=== PATIENT | female | born 1985 | race Caucasian/White ===

== ENCOUNTER 2020-03-23 20:10 | Emergency (ER) | payer OTHER, MEDICAID, SELFPAY ==
[2020-03-23] VITALS (9 sets, daily range): BP systolic 123–146; BP diastolic 70–94; PULSE 72–88; RESP 19–39; TEMP 37.2; O2SAT 99–100; BMI 35.5
--- NOTE | 2020-03-23 20:42 | ED_ITS ---
HPI - SOB/Dyspnea General Chief Complaint: Shortness of Breath/Dyspnea Stated Complaint: SOB DIZZY WEAKNESS Time Seen by Provider: 03/23/20 20:24 Source: patient Mode of arrival: Ambulatory Limitations: no limitations History of Present Illness HPI Narrative: 34-year-old female nonsmoker with noncontributory history presents with a chief complaint of worsening shortness of breath contributing to some dizziness anxiety over the course of the night. She was recently seen and evaluated at outside facility chest x-ray demonstrated infiltrates which resulted in treatment with antibiotics that she has finished. She has had no fever chills. She denies any chest pain. She has had no nausea, vomiting or diarrhea. MD Complaint: shortness of breath Onset (ago): hour(s) Severity: moderate Consistency/Duration: constant Relieving factors: nothing Known history of: recurrent pneumonia Treatment prior to arrival: other Related Data Home oxygen amount: none Allergies Allergy/AdvReac Type Severity Reaction Status Date / Time Sulfa (Sulfonamide Allergy Verified 03/23/20 20:24 Antibiotics) Review of Systems Constitutional Constitutional: Denies chills, Denies fatigue, Denies fever(s), Denies frequent falls, Denies lethargy and Denies weakness Eyes Eyes: Denies change in vision, Denies eye discharge, Denies irritation and Denies loss of vision ENT Ears, Nose, Mouth, and Throat: Denies change in voice, Denies dizziness, Denies neck pain, Denies sore throat and Denies throat swelling Cardiovascular Cardiovascular: Denies chest pain, Denies irregular heart rhythm, Denies lightheadedness, Denies palpitations, Reports dyspnea, Denies dyspnea on exertion and Denies orthopnea Respiratory Respiratory: Reports cough, Reports dyspnea, Denies dyspnea on exertion and Denies wheezing Gastrointestinal Gastrointestinal: Denies abdominal pain, Denies change in bowel habits, Denies diarrhea, Denies nausea and Denies vomiting Musculoskeletal Musculoskeletal: Denies neck pain and Denies numbness Integumentary/Breasts Skin/Breast: Denies pruritus, Denies erythema, Denies rash and Denies wounds Neurologic Neurologic: Denies behavioral changes, Denies confusion, Denies dizziness, Denies frequent falls, Denies loss of vision, Denies numbness and Denies weakness Psychiatric Psychiatric: Denies anxiety, Denies behavioral changes, Denies confusion, Denies depression, Denies homicidal ideation and Denies suicidal ideation Endocrine Endocrine: Denies fatigue, Denies flushing and Denies palpitations Hematologic/Lymphatic Hematologic/Lymphatic: Denies easy bruising Allergic/Immunologic Allergic/Immunologic: Denies urticaria, Denies throat swelling and Denies wheezing Patient History Social History Smoking Status: Never smoker Smoking Status: Never smoker alcohol intake frequency: holidays/special occasions only Substance Use Type: does not use Exam Narrative Exam Narrative: GENERAL: [34] year old patient appears stated age. Well- nourished, well-developed patient, in mild distress. Anxious, increased work of breathing HEAD: Atraumatic. Normocephalic. EYES: Pupils equal round and reactive. Extraocular motions intact. No scleral icterus. No injection or drainage. ENT: Nose without bleeding, purulent drainage. Throat without erythema, tonsillar hypertrophy or exudate. Airway patent. NECK: Trachea midline. Non tender CARDIOVASCULAR: Regular rate and rhythm without murmurs, gallops, or rubs. RESPIRATORY: Clear to auscultation. Breath sounds equal bilaterally. No wheezes, rales, or rhonchi. GASTROINTESTINAL: Abdomen soft, non-tender, nondistended. EXTREMITIES: No edema or joint tenderness. BACK: Nontender without deformity or crepitance. No flank tenderness. NEURO: AOx3. SKIN: No rash or erythema of visible areas NIH Stroke Scale 1a. LOC: Patient is alert and keenly responsive (0) 1b. LOC Questions: Patient answers both LOC questions accurately (0) 1c. LOC Commands: Patient performs both tasks correctly (0) 2. Best Gaze: Normal (0) 3. Visual: No visual loss (0) 4. Facial palsy: Normal symmetrical movements (0) 5. Motor arm: No drift (0) 6. Motor leg: No drift (0) 7. Limb ataxia: Absent (0) 8. Sensory: Normal (0) 9. Best language: No aphasia; normal (0) 10. Dysarthria: Normal (0) 11. Extinction and inattention: No abnormality (0) NIHSS: 0 Initial Vital Signs Initial Vital Signs: Vital Signs Pulse Rate 88 03/23/20 20:22 Respiratory Rate 27 H 03/23/20 20:22 Pulse Oximetry 100 03/23/20 20:22 Course Course Course Narrative: Patient had been on phentermine for about 5 days prior to the onset of her symptoms. Initially it was thought that her shortness of breath was certainly due to the abnormal findings on the chest x-ray at outside facility, but there is the possibility that her symptoms are related to phentermine use. Medication reaction, including tachycardia, anxiety, and even direct myocardial toxicity considered. Myocardial toxicity thought unlikely given lack of abnormal lab findings Orders Ordered: ED Orders 03/24/20 00:46 CT angio chest PE protocol Stat Arterial Blood Gas Stat 03/24/20 00:55 Thyroid Stimulating Hormone Stat 03/24/20 02:06 Venous Blood Gas Stat 03/24/20 02:55 Salicylate Stat Discontinued Medications Sodium Chloride (Normal Saline 0.9%) 1,000 mls @ 1,000 mls/hr IV BOLUS ONE Stop: 03/23/20 21:41 Last Infusion: 03/23/20 23:21 Dose: 0 mls/hr Documented by: Admin: 03/23/20 21:11 Dose: 1,000 mls/hr Documented by: BETTE Vital Signs Vital signs: Vital Signs - 8 hr 03/23/20 23:00 03/23/20 23:30 03/24/20 00:00 Pulse Rate 85 79 73 Respiratory Rate 23 39 H 21 Blood Pressure 125/83 Pulse Oximetry 100 100 100 03/24/20 00:30 03/24/20 01:08 03/24/20 01:30 Pulse Rate 88 107 H 76 Respiratory Rate 30 H 31 H 28 H Blood Pressure Pulse Oximetry 99 90 L 100 03/24/20 02:00 03/24/20 02:06 03/24/20 02:30 Pulse Rate 90 85 70 Respiratory Rate 38 H 25 H 28 H Blood Pressure 121/79 124/79 Pulse Oximetry 100 100 98 03/24/20 03:00 03/24/20 03:30 Pulse Rate 76 80 Respiratory Rate 21 32 H Blood Pressure Pulse Oximetry 97 97 MDM - SOB/Dyspnea Lab Data Result diagrams: 03/23/20 20:55 03/23/20 20:55 Labs: Lab Results 03/23/20 03/23/20 03/23/20 Range/Units 20:20 20:55 20:55 WBC 11.2 H (4.5-11.0) X10^3/uL RBC 5.05 (4.0-5.2) X10^6/uL Hgb 13.6 (12.0-16.0) g/dL Hct 41.8 (36-46) % MCV 82.8 (80-100) fL MCH 26.9 (26-34) PG MCHC 32.5 (30-36) % RDW 16.5 H (11.6-14.8) % Plt Count 360 (150-400) X10^3/uL Neut % (Auto) 59.7 (50-75) % Lymph % (Auto) 31.9 (25-40) % [place] % (Auto) 7.0 (3-14) % Eos % (Auto) 0.7 L (2-4) % Baso % (Auto) 0.7 (0-2) % Neut # (Auto) 6700 (9386-5023) /uL Lymph # (Auto) 3600 (7957-8954) /uL [place] # (Auto) 800 (0-900) /uL Eos # (Auto) 100 (0-450) /uL Baso # (Auto) 100 (0-100) /uL D-Dimer < 200 (<230) ng/mL VBG pH (7.33-7.43) VBG pCO2 (45-50) mmHg VBG pO2 (35-45) mmHg VBG HCO3 (23-28) mmol/L VBG Total CO2 (24-29) mmol/L VBG O2 Saturation (70-75) % VBG Base Excess (0-4) mmol/L Sodium (137-145) mmol/L Potassium (3.4-5.1) mmol/L Chloride (98-107) mmol/L Carbon Dioxide (22-32) mmol/L BUN (7-17) mg/dL Creatinine (0.52-1.04) mg/dL Estimated GFR (>60) mL/min BUN/Creatinine Ratio (6-22) Glucose (70-100) mg/dL Lactate (0.7-2.1) mmol/L Calcium (8.4-10.2) mg/dL Magnesium (1.6-2.3) mg/dL Total Creatine Kinase (30-135) U/L CK-MB (CK-2) (<2.37) ng/mL CK-MB (CK-2) Rel Index (1.5-5.0) % Troponin I (0.01-0.034) ng/mL NT-Pro-B Natriuret Pep (<125) pg/mL Procalcitonin (<0.5) ng/mL TSH (0.47-4.68) uIU/mL Salicylates (<20) mg/dL COVID-19 PCR Negative (Negative) 03/23/20 03/23/20 03/23/20 Range/Units 20:55 20:55 20:55 WBC (4.5-11.0) X10^3/uL RBC (4.0-5.2) X10^6/uL Hgb (12.0-16.0) g/dL Hct (36-46) % MCV (80-100) fL MCH (26-34) PG MCHC (30-36) % RDW (11.6-14.8) % Plt Count (150-400) X10^3/uL Neut % (Auto) (50-75) % Lymph % (Auto) (25-40) % [place] % (Auto) (3-14) % Eos % (Auto) (2-4) % Baso % (Auto) (0-2) % Neut # (Auto) (2106-5610) /uL Lymph # (Auto) (7024-0788) /uL [place] # (Auto) (0-900) /uL Eos # (Auto) (0-450) /uL Baso # (Auto) (0-100) /uL D-Dimer (<230) ng/mL VBG pH (7.33-7.43) VBG pCO2 (45-50) mmHg VBG pO2 (35-45) mmHg VBG HCO3 (23-28) mmol/L VBG Total CO2 (24-29) mmol/L VBG O2 Saturation (70-75) % VBG Base Excess (0-4) mmol/L Sodium 137 (137-145) mmol/L Potassium 3.4 (3.4-5.1) mmol/L Chloride 106 (98-107) mmol/L Carbon Dioxide 20 L (22-32) mmol/L BUN 13 (7-17) mg/dL Creatinine 0.77 (0.52-1.04) mg/dL Estimated GFR > 60.0 (>60) mL/min BUN/Creatinine Ratio 16.9 (6-22) Glucose 95 (70-100) mg/dL Lactate 2.4 H (0.7-2.1) mmol/L Calcium 10.0 (8.4-10.2) mg/dL Magnesium 1.9 (1.6-2.3) mg/dL Total Creatine Kinase 192 H (30-135) U/L CK-MB (CK-2) 0.44 (<2.37) ng/mL CK-MB (CK-2) Rel Index 0.2 L (1.5-5.0) % Troponin I < 0.012 (0.01-0.034) ng/mL NT-Pro-B Natriuret Pep 28 (<125) pg/mL Procalcitonin < 0.05 (<0.5) ng/mL TSH (0.47-4.68) uIU/mL Salicylates (<20) mg/dL COVID-19 PCR (Negative) 03/23/20 03/23/20 03/23/20 Range/Units 20:55 20:55 23:20 WBC (4.5-11.0) X10^3/uL RBC (4.0-5.2) X10^6/uL Hgb (12.0-16.0) g/dL Hct (36-46) % MCV (80-100) fL MCH (26-34) PG MCHC (30-36) % RDW (11.6-14.8) % Plt Count (150-400) X10^3/uL Neut % (Auto) (50-75) % Lymph % (Auto) (25-40) % [place] % (Auto) (3-14) % Eos % (Auto) (2-4) % Baso % (Auto) (0-2) % Neut # (Auto) (7157-3813) /uL Lymph # (Auto) (4247-0430) /uL [place] # (Auto) (0-900) /uL Eos # (Auto) (0-450) /uL Baso # (Auto) (0-100) /uL D-Dimer (<230) ng/mL VBG pH (7.33-7.43) VBG pCO2 (45-50) mmHg VBG pO2 (35-45) mmHg VBG HCO3 (23-28) mmol/L VBG Total CO2 (24-29) mmol/L VBG O2 Saturation (70-75) % VBG Base Excess (0-4) mmol/L Sodium (137-145) mmol/L Potassium (3.4-5.1) mmol/L Chloride (98-107) mmol/L Carbon Dioxide (22-32) mmol/L BUN (7-17) mg/dL Creatinine (0.52-1.04) mg/dL Estimated GFR (>60) mL/min BUN/Creatinine Ratio (6-22) Glucose (70-100) mg/dL Lactate 1.1 (0.7-2.1) mmol/L Calcium (8.4-10.2) mg/dL Magnesium (1.6-2.3) mg/dL Total Creatine Kinase (30-135) U/L CK-MB (CK-2) (<2.37) ng/mL CK-MB (CK-2) Rel Index (1.5-5.0) % Troponin I (0.01-0.034) ng/mL NT-Pro-B Natriuret Pep (<125) pg/mL Procalcitonin (<0.5) ng/mL TSH 4.89 H (0.47-4.68) uIU/mL Salicylates < 1.0 (<20) mg/dL COVID-19 PCR (Negative) 03/24/20 Range/Units 02:06 WBC (4.5-11.0) X10^3/uL RBC (4.0-5.2) X10^6/uL Hgb (12.0-16.0) g/dL Hct (36-46) % MCV (80-100) fL MCH (26-34) PG MCHC (30-36) % RDW (11.6-14.8) % Plt Count (150-400) X10^3/uL Neut % (Auto) (50-75) % Lymph % (Auto) (25-40) % [place] % (Auto) (3-14) % Eos % (Auto) (2-4) % Baso % (Auto) (0-2) % Neut # (Auto) (4864-1855) /uL Lymph # (Auto) (6117-8495) /uL [place] # (Auto) (0-900) /uL Eos # (Auto) (0-450) /uL Baso # (Auto) (0-100) /uL D-Dimer (<230) ng/mL VBG pH 7.53 H (7.33-7.43) VBG pCO2 20.5 L (45-50) mmHg VBG pO2 25 L (35-45) mmHg VBG HCO3 17 L (23-28) mmol/L VBG Total CO2 18 L (24-29) mmol/L VBG O2 Saturation 58 L (70-75) % VBG Base Excess -5.0 L (0-4) mmol/L Sodium (137-145) mmol/L Potassium (3.4-5.1) mmol/L Chloride (98-107) mmol/L Carbon Dioxide (22-32) mmol/L BUN (7-17) mg/dL Creatinine (0.52-1.04) mg/dL Estimated GFR (>60) mL/min BUN/Creatinine Ratio (6-22) Glucose (70-100) mg/dL Lactate (0.7-2.1) mmol/L Calcium (8.4-10.2) mg/dL Magnesium (1.6-2.3) mg/dL Total Creatine Kinase (30-135) U/L CK-MB (CK-2) (<2.37) ng/mL CK-MB (CK-2) Rel Index (1.5-5.0) % Troponin I (0.01-0.034) ng/mL NT-Pro-B Natriuret Pep (<125) pg/mL Procalcitonin (<0.5) ng/mL TSH (0.47-4.68) uIU/mL Salicylates (<20) mg/dL COVID-19 PCR (Negative) Point of Care Testing Test Results Negative Urine Dip Bedside Urine Glucose Negative Bedside Urine Bilirubin - Negative Bedside Urine Ketone +/- 5 Urine Specific [place] 1.015 Bedside Urine Occult Blood - Negative Bedside Urine pH 6.0 Bedside Urine Protein - Negative Bedside Urine Urobilinogen - Negative Bedside Urine Nitrite - Negative Bedside Urine Leukocytes - Negative Esterase MDM Narrative Medical decision making narrative: Patient complains of ongoing shortness of breath with recent diagnosis of pneumonia. Extensive evaluation performed including imaging, labs and detailed physical exams. Breath sounds are unremarkable, chest x-ray and CT would suggest no infiltrate, PE or pericardial effusion. Other diagnoses such as CA, CHF, electrolyte abnormality and anemia considered but thought less likely given lack of abnormal findings on the labs. Neurologic conditions considered, however detailed neurologic exam including cranial nerves demonstrate no findings. Guillain-[place] considered but thought less likely given lack of lower extremity weakness, numbness, change in reflexes. Various metabolic acidosis considered but thought less likely given findings on VBG. Again, COVID pneumonia considered but thought less likely given lack of findings on swab. Extensive return precautions given and questions answered to the apparent satisfaction of patient. Discharge Plan Departure Patient Disposition: Home Clinical Impression: Dyspnea Qualifiers: Dyspnea type: dyspnea on exertion Qualified Code(s): R06.00 - Dyspnea, unspecified Instructions: DI for Shortness of Breath Activity Restrictions/Additional Instructions: *You have been diagnosed with [shortness of breath, possibly and affect of your phentermine. Your lab work, physical exam and imaging are all very reassuring.] *What to do: * do not begin taking phentermine again *Follow up with your primary care provider in 2-3 days, call for an appointment. Let them know you were seen in the Emergency Department and that we ask that you be seen in follow up *Return to ER if you should have any new, worsening or concerning symptoms
--- NOTE | 2020-03-23 20:43 | DI.RAD.S_ITS ---
PROCEDURE: XR CHEST 2V INDICATIONS: SOB, recent PNA TECHNIQUE: 2 views of the chest were acquired. COMPARISON: [facility], CT, CT ANGIO CHEST PE PROTOCOL, 03/24/2020, 0:53. [facility], CR, XR CHEST 2VW, 07/17/2015, 14:18. FINDINGS: Surgical changes and devices: None. Lungs and pleura: Lungs are clear. No pleural effusions or pneumothorax. Mediastinum: Mediastinal contours are normal. Heart size is normal. Bones and chest wall: No suspicious bony abnormalities. Soft tissues appear unremarkable. IMPRESSION: Normal chest plain films. Dictated by: Axel Ricardo M.D. on 03/24/2020 at 7:21 Approved by: Axel Riacrdo M.D. on 03/24/2020 at 7:22
[2020-03-23] MEDS: SODIUM CHLORIDE 0.9% 1,000 ML 1000 ML IV (21:11)
[2020-03-23 21:14] LABS: Add Manual Diff / Slide Review NO; Basophils Absolute Auto 100 /uL (0-100); Basophils Percent Auto 0.7 % (0-2); Eosinophils Absolute Auto 100 /uL (0-450); Eosinophils Percent Auto 0.7 % (2-4); Hematocrit 41.8 % (36-46); Hemoglobin 13.6 g/dL (12.0-16.0); Lymphocytes Absolute Auto 3600 /uL (1100-4500); Lymphocytes Percent Auto 31.9 % (25-40); Mean Corpuscular HGB Conc 32.5 % (30-36); Mean Corpuscular Hemoglobin 26.9 PG (26-34); Mean Corpuscular Volume 82.8 fL (80-100); Monocytes Absolute Auto 800 /uL (0-900); Neutrophils Absolute Auto 6700 /uL (1500-7000); Neutrophils Percent Auto 59.7 % (50-75); Platelet Count 360 X10^3/uL (150-400); Red Blood Cell Count 5.05 X10^6/uL (4.0-5.2); Red Cell Distribution Width 16.5 % (11.6-14.8); White Blood Cell Count 11.2 X10^3/uL (4.5-11.0)
[2020-03-23 21:29] LABS: BUN Creatinine Ratio 16.9 (6-22); Blood Urea Nitrogen 13 mg/dL (7-17); Carbon Dioxide 20 mmol/L (22-32); Chloride 106 mmol/L (98-107); Creatine Kinase 192 U/L (30-135); Estimated Glomerular Filt Rate > 60.0 mL/min (>60); Glucose 95 mg/dL (70-100); HEMOLYSIS < 15 (0-50); Lactate (Lactic Acid) 2.4 mmol/L (0.7-2.1); Magnesium 1.9 mg/dL (1.6-2.3); Potassium 3.4 mmol/L (3.4-5.1); Sodium 137 mmol/L (137-145)
[2020-03-23 21:40] LABS: NT-proBNP (BNP-Adult 18+) 28 pg/mL (<125); Troponin I < 0.012 ng/mL (0.01-0.034)
[2020-03-23 21:43] LABS: CKMB % Relative Index 0.2 % (1.5-5.0); Creatine Kinase MB 0.44 ng/mL (<2.37)
[2020-03-23 21:46] LABS: Procalcitonin < 0.05 ng/mL (<0.5)
[2020-03-23 21:58] LABS: COVID19 -Nasal RAPID Negative (Negative)
[2020-03-23 22:07] LABS: D Dimer < 200 ng/mL (<230)
[2020-03-23 23:10] LABS: Reflexed Lactate in 2 Hours Y
[2020-03-23 23:37] LABS: Lactate 2HR (Lactic Acid Rflx) 1.1 mmol/L (0.7-2.1)
[2020-03-24] VITALS (9 sets, daily range): BP systolic 121–124; BP diastolic 79; PULSE 70–107; RESP 21–38; O2SAT 90–100
--- NOTE | 2020-03-24 00:46 | DI.CT.S_ITS ---
PROCEDURE: CT ANGIO CHEST PE PROTOCOL INDICATIONS: severe shortness of breath with minimal exertion TECHNIQUE: After the administration of intravenous contrast, 2 mm thick sections acquired from the pulmonary apices to the posterior costophrenic angles. 3-dimensional maximum intensity projection (MIP) coronal and sagittal reformats were then acquired through the thorax. For radiation dose reduction, the following was used: automated exposure control, adjustment of mA and/or kV according to patient size. COMPARISON: None. FINDINGS: Image quality: Excellent. Pulmonary arteries: Pulmonary arteries are normal in size, and demonstrate no intraluminal filling defects to suggest central pulmonary embolism. Lungs and pleura: Lungs are clear. No pleural effusions or pneumothorax. Central and peripheral airways are patent. Mediastinum: Heart size is normal, without pericardial effusion. No mediastinal or hilar adenopathy. Thoracic aorta is normal in caliber and enhancement. Esophagus is normal in caliber, without hiatal hernia. Bones and chest wall: No suspicious bony lesions. Ribs and thoracic spine appear intact throughout. No axillary or supraclavicular adenopathy. Abdomen: Borderline enlarged spleen. Punctate hyperdensity near the gallbladder neck may represent partially visualized calculus. No acute finding in the included upper abdomen otherwise. IMPRESSION: No pulmonary embolism or other acute finding in the chest. Borderline splenomegaly. Possible cholelithiasis. No significant change from preliminary report . Dictated by: Mor Edmondson M.D. on 03/24/2020 at 8:01 Approved by: Mor Edmondson M.D. on 03/24/2020 at 8:03
[2020-03-24 02:19] LABS: PCO2 VBG 20.5 mmHg (45-50); pH VBG 7.53 (7.33-7.43)
[2020-03-24 02:20] LABS: HCO3 VBG 17 mmol/L (23-28); Oxygen Saturation VBG 58 % (70-75); PO2 VBG 25 mmHg (35-45); Total CO2 VBG 18 mmol/L (24-29)
[2020-03-24 03:09] LABS: Salicylate < 1.0 mg/dL (<20)
[2020-03-24 03:46] LABS: Thyroid Stimulating Hormone 4.89 uIU/mL (0.47-4.68)
== END 2020-03-24 03:35 | disposition home or self-care (01) ==
PROVIDERS: Emergency Provider Emergency Medicine
DX: R06.00 Dyspnea, unspecified (principal); J18.9 Pneumonia, unspecified organism
CPT/HCPCS: 36415; 71046; 71275; 80048; 80329; 81003; 81025; 82550; 82553; 82805; 83605; 83735; 83880; 84145; 84443; 84484; 85025; 85379; 87040; 87635; 93005; 96360; 96361; 99283; 99284; G0480; Q9967

== ENCOUNTER 2023-06-30 09:18 | Emergency (ER) | payer OTHER, SELFPAY ==
[2023-06-30] VITALS (7 sets, daily range): BP systolic 109–124; BP diastolic 77–83; PULSE 71–101; RESP 13–20; TEMP 36.9; O2SAT 97–100; BMI 29.0
--- NOTE | 2023-06-30 09:28 | ED.GENADULT ---
HPI - General Adult General Chief complaint: Shortness of Breath/Dyspnea Stated complaint: SOB/ Light headded Time Seen by Provider: 06/30/23 09:20 History of Present Illness HPI narrative: 37-year-old woman with a history of ADHD, recent 60 lb weight loss with wegovi who presents with exertional dyspnea. It has been mildly problematic for the last 3 months but over the last 3 days it is getting significantly worse. 48 hours ago she had an episode where she had to sit up in bed focus on deep breathing to catch her breath. Associated with dizziness. During the day she finds that she needs to stop and take a deep breath with less and less activity. She has not complaining of palpitations, heart pain, lower extremity edema. She notes that she did have an upper respiratory infection approximately 3 weeks ago but this seems to have resolved completely. She used to have reflux but has not been bothered by this after the recent weight loss. She will use Vyvanse but only when she is at work and needs to stay focused, she has no history of asthma COPD or smoking. She notes that she was recently started on estradiol vaginal cream every other day to help with hot flashes Related Data Allergies Allergy/AdvReac Type Severity Reaction Status Date / Time Sulfa (Sulfonamide Allergy Verified 03/23/20 20:24 Antibiotics) Review of Systems Review of Systems Narrative: Pertinent positive and negative findings as per HPI Patient History Medical History (Updated 06/30/23 @ 11:53 by Giovana Traylor MD) ADHD Social History Smoking Status: Never smoker Smoking Status: Never smoker alcohol intake frequency: holidays/special occasions only Substance Use Type: does not use Exam Initial Vital Signs Initial Vital Signs: Vital Signs Pulse Rate 90 06/30/23 09:26 Blood Pressure 124/78 06/30/23 09:26 Pulse Oximetry 100 06/30/23 09:26 General: Healthy appearing, in no acute distress. Able to give a complete and coherent history. Well-nourished well-developed HEENT: Moist mucous membranes, normal sclera with reactive pupils, Neck: No JVD, supple Respiratory: Lungs are clear to auscultation, no wheezing no rales no rhonchi. Full and symmetrical air movement however she does need to stop intake a couple of full deep breaths during a sentence. Oxygen saturations do not fall with those symptoms Cardiac: Mild tachycardia Regular rate and rhythm no murmurs no bruits Abdomen: Soft, nontender, good bowel tones, no flank pain Skin: Warm and dry, no rashes Neurologic: Grossly neurologically intact with no obvious asymmetries or abnormalities Extremities: No trauma, well perfused, no lower extremity edema Psych: Cooperative, appropriate insight and affect Course Orders Ordered: ED Orders 06/30/23 09:38 Complete Blood Count AUTO DIFF Stat Comprehensive Metabolic Panel Stat NT-proBNP (BNP-Adult 18+) Stat 06/30/23 09:43 CT angio chest PE protocol Stat 06/30/23 09:44 EKG-12 Lead Stat Vital Signs Vital signs: Vital Signs - 8 hr 06/30/23 09:26 06/30/23 09:26 06/30/23 09:30 Temperature 98.4 F Pulse Rate 90 92 H Respiratory Rate 20 Blood Pressure 124/78 124/78 Pulse Oximetry 100 99 Oxygen Delivery Method Room Air 06/30/23 09:30 06/30/23 09:56 06/30/23 09:56 Temperature Pulse Rate 101 H 80 Respiratory Rate 18 Blood Pressure 117/77 Pulse Oximetry 99 97 Oxygen Delivery Method Room Air 06/30/23 10:00 06/30/23 10:00 06/30/23 10:30 Temperature Pulse Rate 81 Respiratory Rate Blood Pressure 112/79 109/78 Pulse Oximetry 99 Oxygen Delivery Method 06/30/23 10:30 Temperature Pulse Rate 78 Respiratory Rate 13 Blood Pressure Pulse Oximetry 100 Oxygen Delivery Method Room Air Medical Decision Making Lab Data 06/30/23 09:38 06/30/23 09:38 Labs: Lab Results 06/30/23 Range/Units 09:38 WBC 8.4 (4.5-11.0) X10^3/uL RBC 4.84 (4.0-5.2) X10^6/uL Hgb 14.7 (12.0-16.0) g/dL Hct 42.8 (36-46) % MCV 88.4 (80-100) fL MCH 30.4 (26-34) PG MCHC 34.4 (30-36) % RDW 12.4 (11.6-14.8) % Plt Count 382 (150-400) X10^3/uL Neut % (Auto) 58.2 (50-75) % Lymph % (Auto) 31.8 (25-40) % [place] % (Auto) 7.6 (3-14) % Eos % (Auto) 1.2 L (2-4) % Baso % (Auto) 1.2 (0-2) % Neut # (Auto) 4900 (9709-1367) /uL Lymph # (Auto) 2700 (8432-9583) /uL [place] # (Auto) 600 (0-900) /uL Eos # (Auto) 100 (0-450) /uL Baso # (Auto) 100 (0-100) /uL Sodium 139 (137-145) mmol/L Potassium 3.6 (3.4-5.1) mmol/L Chloride 106 (98-107) mmol/L Carbon Dioxide 24 (22-32) mmol/L BUN 9 (7-17) mg/dL Creatinine 0.70 (0.52-1.04) mg/dL Estimated GFR > 60 (>60) mL/min BUN/Creatinine Ratio 12.9 (6-22) Glucose 69 L (70-100) mg/dL Calcium 9.8 (8.4-10.2) mg/dL Total Bilirubin 0.7 (0.2-1.3) mg/dL AST 25 (14-36) IU/L ALT 30 (<35) IU/L Alkaline Phosphatase 52 (38-126) U/L NT-Pro-B Natriuret Pep 80 (<125) pg/mL Total Protein 7.6 (6.3-8.2) g/dL Albumin 4.5 (3.5-5.0) g/dL Globulin 3.1 (1.7-4.1) g/dL Albumin/Globulin Ratio 1.5 (1.0-2.8) Point of Care Testing Test Results Negative Urine Dip Bedside Urine Glucose Negative Bedside Urine Bilirubin - Negative Bedside Urine Ketone - Negative Urine Specific [place] 1.010 Bedside Urine Occult Blood - Negative Bedside Urine pH 6.5 Bedside Urine Protein - Negative Bedside Urine Urobilinogen - Negative Bedside Urine Nitrite - Negative Bedside Urine Leukocytes - Negative Esterase Point of care testing: Point of Care Testing Test Results Negative Urine Dip Bedside Urine Glucose Negative Bedside Urine Bilirubin - Negative Bedside Urine Ketone - Negative Urine Specific [place] 1.010 Bedside Urine Occult Blood - Negative Bedside Urine pH 6.5 Bedside Urine Protein - Negative Bedside Urine Urobilinogen - Negative Bedside Urine Nitrite - Negative Bedside Urine Leukocytes - Negative Esterase MDM Narrative Medical decision making narrative: CC: Exertional dyspnea worsening over the last couple of days Complicating co-morbidities: On Wegovy for weight loss, recently started topical estradiol, intermittent Vyvanse, recent upper respiratory infection Data collected from: patient Differential considered: Pulmonary embolism, congestive heart failure, cardiomyopathy, pericardial abnormality, interstitial lung disease in the absence of wheeze asthma/reactive airway disease seems far less likely Exam documented above, pertinent findings include: Benign exam with the exception of mild tachycardia and obvious dyspnea with speaking while saturations are maintained Lab Test results independently reviewed as above. Pertinent findings: CBC is unremarkable CMP is unremarkable No evidence congestive heart failure Independently reviewed EKG: Sinus rhythm at a rate of 80, no acute ischemic changes Imaging studies independently reviewed: CT angiogram of the chest shows no acute findings specifically no parenchymal pulmonary disease, no pulmonary emboli, no evidence of significant cardiomyopathy, pericardial effusion or alternate explanation for her symptoms today Discussion: 37-year-old woman with exertional dyspnea. No evidence of acute anemia, congestive heart failure, pericardial abnormalities/post viral myocarditis. Patient does have a follow up appointment with her primary care physician. I think discharge home is safe at this point and follow up with her primary care physician is going to be appropriate. Next step in this workup may well be pulmonary function testing as well as echocardiogram. It does not look like a TSH has been checked since 2019 so will add that blood work and have patient follow-up with thyroid studies when she does follow up with her primary doctor. Questions are answered and she is safe for discharge Discharge Plan Departure Patient Disposition: Home Clinical Impression: Exertional dyspnea Instructions: DI for Shortness of Breath Activity Restrictions/Additional Instructions: Thank you for coming in today I do not have an explanation for the dyspnea that you are experiencing however I do have a long list of things that you do not have. Your workup today showed no evidence of anemia, infection, kidney failure, liver failure, congestive heart failure, no pulmonary embolism, no overt infections or abnormalities in the lung tissue itself, no obvious cardiac abnormalities fluid around your heart or pericardial issues. I believe the next step in your workup maybe pulmonary function testing and likely an echocardiogram. If results still are not forthcoming pulmonary and or cardiology consultation may also be appropriate. If you find that you are getting worse or develop any new symptoms, please feel free to return to the emergency department for further evaluation. Referrals: Tran Preciado ARNP [Primary Care Provider] - Stand Alone Forms: Patient Portal/API
--- NOTE | 2023-06-30 09:43 | DI.CT.S_ITS ---
PROCEDURE: CT ANGIO CHEST PE PROTOCOL INDICATIONS: increased dyspnea X 3 days, high suspicion PE TECHNIQUE: After the administration of intravenous contrast, 2 mm thick sections acquired from the pulmonary apices to the posterior costophrenic angles. 3-dimensional maximum intensity projection (MIP) coronal and sagittal reformats were then acquired through the thorax. For radiation dose reduction, the following was used: automated exposure control, adjustment of mA and/or kV according to patient size. COMPARISON: [facility], CT, CT ANGIO CHEST PE PROTOCOL, 03/24/2020, 0:53. FINDINGS: Image quality: Diagnostic. Pulmonary arteries: Pulmonary arteries are normal in size, and demonstrate no intraluminal filling defects to suggest central pulmonary embolism. Lower Neck: No enlarged lymph nodes. Thyroid: No thyroid nodules which require sonographic follow up, per consensus guidelines. Axillae: No enlarged lymph nodes. Chest Wall: Unremarkable. Bones: Unremarkable. Lungs and Pleura: No pneumothorax or pleural effusions. Unchanged 5 mm pulmonary nodule, right lower lobe, current image 125/6 and previous image 141/5. Unchanged 3 mm left upper lobe pulmonary nodule, current image 99/6 and previous image 98/5. No new or increasing pulmonary nodules. Heart: Heart size is normal. No pericardial effusion. Thoracic Vessels: No aortic aneurysm. 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 Mediastinum and Amanda: No enlarged lymph nodes. Esophagus: No wall thickening. No hiatal hernia. Upper Abdomen: There is a calcified gallstone in the gallbladder. IMPRESSION: 1. No pulmonary embolus. 2. No acute cardiopulmonary process. 3. Stable benign small pulmonary nodules. 4. Cholelithiasis. 5. Normal variant aortic arch anatomy. Dictated by: Jose Alexander M.D. on 06/30/2023 at 10:06 Approved by: Jose Alexander M.D. on 06/30/2023 at 10:14
[2023-06-30 09:51] LABS: Add Manual Diff / Slide Review NO; Basophils Absolute Auto 100 /uL (0-100); Basophils Percent Auto 1.2 % (0-2); Eosinophils Absolute Auto 100 /uL (0-450); Eosinophils Percent Auto 1.2 % (2-4); Hematocrit 42.8 % (36-46); Hemoglobin 14.7 g/dL (12.0-16.0); Lymphocytes Absolute Auto 2700 /uL (1100-4500); Lymphocytes Percent Auto 31.8 % (25-40); Mean Corpuscular HGB Conc 34.4 % (30-36); Mean Corpuscular Hemoglobin 30.4 PG (26-34); Mean Corpuscular Volume 88.4 fL (80-100); Monocytes Absolute Auto 600 /uL (0-900); Monocytes Percent Auto 7.6 % (3-14); Neutrophils Absolute Auto 4900 /uL (1500-7000); Neutrophils Percent Auto 58.2 % (50-75); Platelet Count 382 X10^3/uL (150-400); Red Blood Cell Count 4.84 X10^6/uL (4.0-5.2); Red Cell Distribution Width 12.4 % (11.6-14.8); White Blood Cell Count 8.4 X10^3/uL (4.5-11.0)
[2023-06-30 10:02] LABS: Alanine Aminotransferase 30 IU/L (<35); Albumin 4.5 g/dL (3.5-5.0); Albumin Globulin Ratio 1.5 (1.0-2.8); Alkaline Phosphatase 52 U/L (38-126); Aspartate Aminotransferase 25 IU/L (14-36); BUN Creatinine Ratio 12.9 (6-22); Bilirubin Total 0.7 mg/dL (0.2-1.3); Blood Urea Nitrogen 9 mg/dL (7-17); Calcium 9.8 mg/dL (8.4-10.2); Carbon Dioxide 24 mmol/L (22-32); Chloride 106 mmol/L (98-107); Estimated Glomerular Filt Rate > 60 mL/min (>60); Globulin 3.1 g/dL (1.7-4.1); Glucose 69 mg/dL (70-100); HEMOLYSIS < 15 (0-50); Potassium 3.6 mmol/L (3.4-5.1); Sodium 139 mmol/L (137-145); Total Protein 7.6 g/dL (6.3-8.2)
[2023-06-30 10:11] LABS: NT-proBNP (BNP-Adult 18+) 80 pg/mL (<125)
== END 2023-06-30 12:03 | disposition home or self-care (01) ==
PROVIDERS: Emergency Provider Emergency Medicine; PCP Registered Nurse
DX: R06.09 Other forms of dyspnea (principal); R42 Dizziness and giddiness
CPT/HCPCS: 36415; 71275; 80053; 81003; 81025; 83880; 84443; 85025; 93005; 99284; Q9967

== ENCOUNTER → 2023-09-07 09:45 | Outpatient (CLI) | payer OTHER, SELFPAY | LOC: RESP 09:46 | PROVIDERS: PCP Registered Nurse; Referring Provider Registered Nurse; Visit Provider Registered Nurse | DX: R06.00 Dyspnea, unspecified (principal) | CPT/HCPCS: 94060; 94726; 94729 ==

== ENCOUNTER 2024-04-17 21:38 | Emergency (ER) | payer OTHER, SELFPAY ==
[2024-04-17 21:52] VITALS: BP 131/85; PULSE 86; RESP 16; TEMP 36.6; O2SAT 99; BMI 25.8
--- NOTE | 2024-04-17 21:55 | ED_ITS ---
HPI - General Adult General Chief complaint: Skin/Abscess/Foreign Body Stated complaint: poss cellulitis Time Seen by Provider: 04/17/24 21:45 Source: patient Mode of arrival: Ambulatory Limitations: no limitations History of Present Illness HPI narrative: Patient was a 38-year-old female who approximately 14 days ago had liposuction. She was placed on Keflex for the day prior to the procedure and for approximat nicola 7 days after the procedure. She arrives today because of redness to her left elbow at a site where 1 of the incisions was made. No other redness. No fevers. She stated that she did talk with the surgeon who thought maybe it was cellulitis. Related Data Previous Rx's Medication Instructions Recorded doxycycline hyclate 100 mg capsule 100 mg PO BID 7 days #14 caps 04/17/24 Allergies Allergy/AdvReac Type Severity Reaction Status Date / Time Sulfa (Sulfonamide Allergy Verified 03/23/20 20:24 Antibiotics) Review of Systems Review of Systems Narrative: See HPI Integumentary/Breasts Skin/Breast: Reports system reviewed and no additional complaints, except as documented Patient History Medical History ADHD Social History Smoking Status: Never smoker Smoking Status: Never smoker alcohol intake frequency: holidays/special occasions only Exam Initial Vital Signs Initial Vital Signs: Vital Signs Temperature 97.9 F 04/17/24 21:52 Pulse Rate 86 04/17/24 21:52 Respiratory Rate 16 04/17/24 21:52 Blood Pressure 131/85 04/17/24 21:52 Pulse Oximetry 99 04/17/24 21:52 Oxygen Delivery Method Room Air 04/17/24 21:52 Skin Other: Patient has redness just superior to the 1 cm incision on the lateral/posterior aspect of the left elbow. It is very demarcated. It appears to be in the location of were bandage was. There are some vesicles in the area. No drainage. Extrem Other: Redness to the left elbow. Course Orders Ordered: Discontinued Medications Doxycycline Hyclate (Doxycycline Hyclate 100 Mg Tablet) 100 mg PO NOW ONE Stop: 04/17/24 21:57 Vital Signs Vital signs: Vital Signs - 8 hr 04/17/24 21:52 Temperature 97.9 F Pulse Rate 86 Respiratory Rate 16 Blood Pressure 131/85 Pulse Oximetry 99 Oxygen Delivery Method Room Air Medical Decision Making MDM Narrative Medical decision making narrative: Patient does have redness around the incision site to the left elbow however it was in a very well demarcated region that is most likely consistent with a reaction to the bandage over the area. There was no deep abscess. No drainage area. Patient was nontoxic. Patient was concerned about cellulitis. Apparently her surgeon was concerned about cellulitis. I feel that it was more a reaction to the bandage however she did recently have surgery. We will start her on antibiotics. First dose given here in the emergency department and a prescription was sent to the pharmacy of her choice. Discharge Plan Departure Patient Disposition: Home Clinical Impression: Cellulitis Instructions: Cellulitis Activity Restrictions/Additional Instructions: Take the antibiotics as directed. Keep all of your follow-up appointments. Follow all of the postprocedure instructions given to you by the surgeon. Return to the emergency department for new symptoms. Prescriptions: New doxycycline hyclate 100 mg capsule 100 mg PO BID 7 Days Qty: 14 0RF Referrals: Tran Preciado ARNP [Primary Care Provider] - Stand Alone Forms: Patient Portal/API/Survey
[2024-04-17] MEDS: DOXYCYCLINE HYCLATE 100 MG TABLET PO (22:00)
== END 2024-04-17 22:06 | disposition home or self-care (01) ==
PROVIDERS: Emergency Provider Emergency Medicine; PCP Registered Nurse
DX: L03.114 Cellulitis of left upper limb (principal)
CPT/HCPCS: 99283